=== PATIENT | male | born 1975 | race African-American/Black ===

== ENCOUNTER 2022-07-14 07:26 | Emergency (ER) | payer MEDICAID ==
[~2022-07-14] VITALS: Ht 180.3 cm; Wt 111.1 kg
[~2022-07-14 07:26] MED LIST: CAT.1 PO; COR25 PO; REN800 PO
[2022-07-14 07:30] VITALS: BP_SYST 165
--- NOTE | 2022-07-14 07:30 | NUR ---
Pt placed to ER tent with mother with c/o sore throat and intermittent fevers x 2 days. He tested positive for COVID via home tests. Denies c/o SOB or C/P.
--- NOTE | 2022-07-14 07:40 | NUR ---
Dr. Richardson assessing pt.
--- NOTE | 2022-07-14 07:52 | NUR ---
Pt presents to the ER from home. CC cough, nausea, vomiting, pt states flu like symptoms of body aches presented 2 days.
--- NOTE | 2022-07-14 08:24 | NUR ---
Patient given written and verbal discharge instructions and verbalizes understanding. ER MD discussed with patient the results and treatment provided. Patient in stable condition. ID arm band removed. Patient educated on pain management and to follow up with PMD. Opportunity for questions provided and answered. Medication side effect fact sheet provided.
[2022-07-14 08:25] VITALS: BP_SYST 165
== END 2022-07-14 08:25 | disposition home or self-care (01) ==
LOC: SED 07:26
DX: J06.9 Acute upper respiratory infection, unspecified (principal); J02.9 Acute pharyngitis, unspecified; J45.909 Unspecified asthma, uncomplicated; I11.0 Hypertensive heart disease with heart failure; I50.9 Heart failure, unspecified; Z79.899 Other long term (current) drug therapy
CPT/HCPCS: 99281